=== PATIENT | female | born 1935 | race Caucasian/White ===

== ENCOUNTER 2020-05-18 18:56 | Emergency (ER) | payer MEDICARE ==
[~2020-05-18] VITALS: Ht 147.3 cm; Wt 44.0 kg
--- NOTE | 2020-05-18 19:36 | PHYS DOC ---
Past History Past Medical History: Anxiety, COPD Past Surgical History: Appendectomy Alcohol Use: None Adult General Chief Complaint Chief Complaint: BLOOD IN URINE HPI HPI Patient is a 85 old female who presents with hematuria and vaginal discharge today. Patient reports she has never had this in the past, states that she noticed the blood in her underwear this morning and was concerned. States she has had limited menses constipation of the last couple days, however denies any blood in her stools. States no current vaginal bleeding, states no rectal bleeding. States no increased urination, however she does not feel that she has had more frequent and less output urine today. Denies fevers. Denies loss of energy. Denies nausea, vomiting, diarrhea. Denies any recent change in medications Review of Systems Review of Systems Constitutional: Denies fever or chills [] Eyes: Denies change in visual acuity, redness, or eye pain [] HENT: Denies nasal congestion or sore throat [] Respiratory: Denies cough or shortness of breath [] Cardiovascular: No additional information not addressed in HPI [] GI: Denies abdominal pain, nausea, vomiting, bloody stools or diarrhea reports lower left abdominal sharp pain [] : Denies dysuria does report episode hematuria with mucus-like vaginal discharge [] Musculoskeletal: Denies back pain or joint pain [] Integument: Denies rash or skin lesions [] Neurologic: Denies headache, focal weakness or sensory changes [] Endocrine: Denies polyuria or polydipsia [] All other systems were reviewed and found to be within normal limits, except as documented in this note. Allergies Allergies Allergies Coded Allergies Type Severity Reaction Last Updated Verified No Known Drug Allergies 05/18/20 No Physical Exam Physical Exam Constitutional: Well developed, well nourished, no acute distress, non-toxic appearance. Friendly, conversational [] HENT: Normocephalic, atraumatic, bilateral external ears normal, oropharynx moist, no oral exudates, nose normal. [] Eyes: PERRLA, EOMI, conjunctiva normal, no discharge. [] Neck: Normal range of motion, no tenderness, supple, no stridor. [] Cardiovascular:Heart rate regular rhythm, no murmur [] Lungs & Thorax: Bilateral breath sounds clear to auscultation [] Abdomen: Bowel sounds normal, soft, no tenderness, no masses, no pulsatile masses. [] Skin: Warm, dry, no erythema, no rash. [] Back: No tenderness, no CVA tenderness. [] Extremities: No tenderness, no cyanosis, no clubbing, ROM intact, no edema. [] Neurologic: Alert and oriented X 3, normal motor function, normal sensory function, no focal deficits noted. [] Psychologic: Affect normal, judgement normal, mood normal. [] Current Patient Data Vital Signs Vital Signs Date Time Temp Pulse Resp B/P (MAP) Pulse Ox O2 Delivery O2 Flow Rate FiO2 05/18/20 18:56 98.9 86 18 188/80 (116) 96 Room Air EKG EKG [] Radiology/Procedures Radiology/Procedures [] Heart Score Risk Factors: Risk Factors: DM, Current or recent (<one month) smoker, HTN, HLP, family history of CAD, obesity. Risk Scores: Risk Factors: DM, Current or recent (<one month) smoker, HTN, HLP, family history of CAD, obesity. Course & Med Decision Making Course & Med Decision Making Pertinent Labs and Imaging studies reviewed. (See chart for details) [] Reviewed results with patient, noting UTI . Patient off reports she was presents, will provide dose of antibiotics here, with prescription to be started again tomorrow. Patient agreed with this plan with no further questions concerns. Patient denies any pain, states anything she has is manageable and does not need to take for her discomfort. Patient reports she will increase hydration, follow with her primary care provider. Dragon Disclaimer Dragon Disclaimer This electronic medical record was generated, in whole or in part, using a voice recognition dictation system. Departure Departure: Impression: Primary Impression: Urinary tract infection with hematuria Disposition: 01 DC HOME SELF CARE/HOMELESS Condition: STABLE Referrals: CARLIE TAMAYO (PCP) Patient Instructions: Urinary Tract Infection, [id number] Additional Instructions: Take antibiotic as prescribed for the entire duration. Make sure you are drinking more water. Follow-up with your primary care provider in the next week to make sure you are feeling better. You may take Tylenol or ibuprofen as needed for discomfort. Scripts Sulfamethoxazole/Trimethoprim (BACTRIM DS TABLET) 1 Each Tablet 1 TAB PO BID for Urinary tract infection for 7 Days, #14 TAB 0 Refills Prov: VERITO NAIK APRN 05/18/20 Problem Qualifiers Primary Impression: Urinary tract infection with hematuria Urinary tract infection type: acute cystitis Qualified Codes: N30.01 - Acute cystitis with hematuria VERITO NAIK APRN May 18, 2020 19:36
[2020-05-18 21:25] LABS: BILIRUBIN,URINE NEG (NEG); CLARITY,URINE CLOUDY; COLOR,URINE YELLOW; GLUCOSE,URINE NEG (NEG); NITRITE,URINE NEG (NEG); UROBILINOGEN,URINE 0.2 mg/dL (0.2 mg/dL)
[2020-05-18 21:26] LABS: BACTERIA,URINE FEW /HPF (0-FEW); RBC,URINE 20-40 /HPF (0-2); SQUAMOUS EPITHELIAL CELL,UR OCC /LPF; WBC,URINE >40 /HPF (0-4)
[2020-05-18] MEDS ORDERED: SULF1TAB24 PO (21:40)
[2020-05-18] MEDS ORDERED: SMZ/TMP 800/160MG TABLET. PO ONE (21:45)
[2020-05-18 22:05] VITALS: BP 187/98
== END 2020-05-18 22:05 | disposition home or self-care (01) ==
LOC: ER 18:56
DX: N30.01 Acute cystitis with hematuria (principal); K59.00 Constipation, unspecified; J44.9 Chronic obstructive pulmonary disease, unspecified; Z90.89 Acquired absence of other organs
CPT/HCPCS: 81001; 99283